=== PATIENT | female | born 1930 | race Caucasian/White ===

== ENCOUNTER 2017-07-22 10:21 | Outpatient (RCR) | payer MEDICARE ==
[~2017-07-22 10:21] MED LIST: AMIT25TA9 PO; ASPI-875 PO; CEFP250T2 PO; CIPR500T78 PO; FERR236T PO; GBPN300C PO; HCT25T PO; LOSA100T16 PO; LOSA50TA6 PO; LVT.025T PO; MELO-195 PO; MTF500T PO; OXYC10TA63 PO; POTA20TA15 PO; SIMV20TA3 PO; SMV20T PO
== END 2017-09-01 16:18 | disposition home or self-care (01) ==
PROVIDERS: ATTEND Internal Medicine
DX: R53.1 Weakness (principal); I10 Essential (primary) hypertension; Z96.651 Presence of right artificial knee joint